=== PATIENT | female | born 1945 | race Two or more races ===

== ENCOUNTER 2021-09-30 10:23 | Emergency (ER) | payer MEDICAID ==
[~2021-09-30] VITALS: Ht 157.5 cm; Wt 83.0 kg
[2021-09-30] MEDS ORDERED: ATOR40TA70 PO (10:50)
[2021-09-30] MEDS ORDERED: CIPR-264 PO (10:50)
[2021-09-30] MEDS ORDERED: BENA40TA66 PO (10:50)
[2021-09-30] MEDS ORDERED: ALOG1TAB8 PO (10:50)
[2021-09-30] MEDS ORDERED: ERTU5TAB PO (10:50)
[2021-09-30] MEDS ORDERED: EMPA25TA PO (10:50)
[2021-09-30 11:50] LABS: BASOPHILS % 0.5 % (0.0-2.0); EOSINOPHILS % 1.1 % (0.0-5.0); HEMATOCRIT. 37.4 % (36.0-48.0); HEMOGLOBIN. 12.9 g/dL (12.0-16.0); LYMPHOCYTES % 9.2 % (20.0-50.0); MEAN CORPUSCULAR HEMOGLOBIN 25.8 pg (28.0-32.0); MEAN PLATELET VOLUME 9.1 fl (7.4-10.4); MONOCYTES % 4.9 % (2.0-8.0); NEUTROPHILS % 84.3 % (40.0-76.0); PLATELET 273 x1000/uL (130-400); RED BLOOD CELL COUNT 4.99 mill/uL (4.2-5.4); RED CELL DISTRIBUTION WIDTH 19.9 % (11.6-14.6)
[2021-09-30 12:03] LABS: CHLORIDE 107 mEq/L (98-107)
[2021-09-30] MEDS ORDERED: MORPHINE SULFATE 2 MG/ML CPJ (NOT FOR IM USE) IV ONE (13:00)
[2021-09-30] MEDS ORDERED: SODIUM CHLORIDE 0.9% 1,000 ML IV ONE (13:00)
[2021-09-30 16:32] VITALS: BP 122/51
== END 2021-09-30 16:53 | disposition home or self-care (01) ==
LOC: ER 11:34
DX: E07.9 Disorder of thyroid, unspecified (principal); J39.8 Other specified diseases of upper respiratory tract; C78.00 Secondary malignant neoplasm of unspecified lung; E11.9 Type 2 diabetes mellitus without complications; E78.00 Pure hypercholesterolemia, unspecified; I10 Essential (primary) hypertension
CPT/HCPCS: 36415; 70450; 70490; 71250; 80053; 85025; 96361; 96374; 99284; J2270; J7030; Z7610